=== PATIENT | male | born 1975 | race Caucasian/White ===

== ENCOUNTER 2017-09-29 11:30 | Emergency (ER) | payer BC ==
[~2017-09-29] VITALS: Ht 177.8 cm; Wt 111.7 kg
[2017-09-29 12:18] LABS: HEMATOCRIT 42.5 % (38.0-50.0); MCH 30.6 PG (29.0-34.0); MCHC 35.3 G/DL (30.0-36.0); MCV 86.7 FL (86-99); PLATELET COUNT 171 K/uL (156-360); RBC DIS.WIDTH-CV 12.4 % (11.8-14.6); RBC DIS.WIDTH-SD 39.1 % (39-53); WHITE BLOOD COUNT 6.7 K/uL (4.1-10.2)
[2017-09-29 12:28] LABS: ALBUMIN 4.3 g/dL (3.2-4.8); CHLORIDE 105 mEq/L (99-109); POTASSIUM 3.9 mEq/L (3.7-5.4); SODIUM 140 mEq/L (136-147)
[2017-09-29 12:30] LABS: GLUCOSE 101 mg/dL (70-99)
[2017-09-29 12:31] LABS: TOTAL PROTEIN 6.8 g/dL (6.4-8.3)
[2017-09-29 12:32] LABS: TOTAL BILIRUBIN 0.7 mg/dL (0.0-1.0)
[2017-09-29 12:34] LABS: ALKALINE PHOSPHATASE 61 IU/L (3-129); CREATININE 0.8 mg/dL (0.6-1.3); GFR ESTIMATE (CALCULATED) > 59 mL/min/ (58.99-99999)
[2017-09-29 12:35] LABS: UREA NITROGEN (BUN) 12 mg/dL (9-23)
[2017-09-29 12:36] LABS: AST (GOT) 41 IU/L (2-34)
[2017-09-29 12:37] LABS: ALT (GPT) 127 IU/L (3-49)
[2017-09-29 12:38] LABS: LIPASE 15 U/L (1.0-51.0)
[2017-09-29 13:30] LABS: APPEARANCE CLEAR ((CLEAR)); BILIRUBIN NEGATIVE; BLOOD NEGATIVE; COLOR YELLOW ((YELLOW)); GLUCOSE (STRIP) NEGATIVE; KETONES NEGATIVE; LEUKOCYTES NEGATIVE; NITRITE NEGATIVE; PROTEIN (STRIP) NEGATIVE; SPECIFIC GRAVITY 1.016 (1.000-1.030); UCUL ADDED? NO; UROBILINOGEN 0.2 MG/DL (0.2-1.0)
[2017-09-29] MEDS ORDERED: BENTYL20 MG PO (15:48)
[2017-09-29 15:55] VITALS: BP 124/67
== END 2017-09-29 15:56 | disposition home or self-care (01) ==
LOC: EME 11:30
PROVIDERS: Nurse Practitioner Family
DX: R10.9 Unspecified abdominal pain (principal); R74.0 Nonspecific elevation of levels of transaminase and lactic acid dehydrogenase [LDH]; F12.90 Cannabis use, unspecified, uncomplicated; R42 Dizziness and giddiness
CPT/HCPCS: 76705; 80053; 81003; 83690; 85027; 99281; 99285; J1885; J7120